=== PATIENT | female | born 2000 | race Caucasian/White ===

== ENCOUNTER 2023-10-20 08:06 | Emergency (ER) | payer OTHER ==
--- NOTE | 2023-10-20 08:11 | ED Physician Documentation ---
PD HPI ABD PAIN - Stated complaint Stated Complaint: LOW ABD PX - History obtained from History obtained from: Patient - History of Present Illness Timing - onset: Today Timing - duration: Days (1) Timing - details: Abrupt onset, Still present Quality: Cramping, Aching, Pain Location: Suprapubic, LLQ Radiation: Lower back Associated symptoms: Nausea. No: Fever, Vomiting, Dysuria, Hematuria, Vaginal dc Review of Systems Constitutional: denies: Fever, Chills : denies: Dysuria, Frequency, Discharge PD PAST MEDICAL HISTORY - Past Medical History Cardiovascular: None Respiratory: None Endocrine/Autoimmune: None COUNTER FORMER: Other ([facility] with plan for US and MRI to eval for endometriosis. ) - Present Medications Home Medications: Ambulatory Orders Medication Instructions Recorded Confirmed FLUoxetine [PROzac] 20 mg PO DAILY 10/20/23 10/20/23 HYDROcod/ACETAM 5/325 [Dorado 5/325] 1 ea PO Q6H PRN #12 tablet 10/20/23 Meloxicam [Mobic] 7.5 mg PO BID 10 Days #40 tablet 10/20/23 Ondansetron Odt [Zofran] 4 mg TL Q6H PRN #10 tablet 10/20/23 - Allergies Allergies/Adverse Reactions: Allergies Allergy/AdvReac Type Severity Reaction Status Date / Time No Known Drug Allergies Allergy Verified 10/20/23 08:17 PD ED PE NORMAL - Vitals Vital signs reviewed: Yes - General General: Alert and oriented X 3, Well developed/nourished - Abdomen Abdomen: Normal bowel sounds, Soft, Non distended, No organomegaly, Other (tender in lower abd/suprapubic area both left and right, with more to left and midline.) - Female Female : Deferred (having patient self obtain vaginal swab. ) - Rectal Rectal: Deferred - Back Back: No CVA TTP - Derm Derm: Normal color, Warm and dry Results - Vitals Vitals: Oxygen O2 Source Room air - Labs Labs: Laboratory Tests 10/20/23 10/20/23 10/20/23 09:00 09:00 10:20 WBC 9.1 RBC 3.93 L Hgb 12.1 Hct 36.5 L MCV 92.9 MCH 30.8 MCHC 33.2 RDW 11.2 L Plt Count 172 MPV 8.7 Neut # (Auto) 7.6 H Lymph # (Auto) 1.0 L [place] # (Auto) 0.4 Eos # (Auto) 0.1 Baso # (Auto) 0.0 Absolute Nucleated RBC 0.00 Nucleated RBC % 0.0 Sodium 138 Potassium 3.8 Chloride 107 Carbon Dioxide 26 Anion Gap 5.0 L BUN 19 Creatinine 0.7 Estimated GFR (MDRD) 103 Glucose 102 Calcium 8.8 Total Bilirubin 0.7 AST 19 ALT 17 Alkaline Phosphatase 48 Total Protein 6.4 Albumin 4.2 Globulin 2.2 Albumin/Globulin Ratio 1.9 Lipase 11 Urine Color YELLOW Urine Clarity CLEAR Urine pH 7.0 Ur Specific [place] 1.015 Urine Protein NEGATIVE Urine Glucose (UA) NEGATIVE Urine Ketones NEGATIVE Urine Occult Blood MODERATE H Urine Nitrite NEGATIVE Urine Bilirubin NEGATIVE Urine Urobilinogen 0.2 (NORMAL) Ur Leukocyte Esterase NEGATIVE Urine RBC 0-5 Urine WBC 0-3 Ur Squamous Epith Cells RARE Squamous Urine Bacteria Rare Ur Microscopic Review INDICATED Urine Culture Comments NOT INDICATED Urine HCG, Qual NEGATIVE C. glabrata (PCR) C. krusei (PCR) Estrellita species DNA T. vaginalis (PCR) Bact Vaginosis (PCR) 10/20/23 10:35 WBC RBC Hgb Hct MCV MCH MCHC RDW Plt Count MPV Neut # (Auto) Lymph # (Auto) [place] # (Auto) Eos # (Auto) Baso # (Auto) Absolute Nucleated RBC Nucleated RBC % Sodium Potassium Chloride Carbon Dioxide Anion Gap BUN Creatinine Estimated GFR (MDRD) Glucose Calcium Total Bilirubin AST ALT Alkaline Phosphatase Total Protein Albumin Globulin Albumin/Globulin Ratio Lipase Urine Color Urine Clarity Urine pH Ur Specific [place] Urine Protein Urine Glucose (UA) Urine Ketones Urine Occult Blood Urine Nitrite Urine Bilirubin Urine Urobilinogen Ur Leukocyte Esterase Urine RBC Urine WBC Ur Squamous Epith Cells Urine Bacteria Ur Microscopic Review Urine Culture Comments Urine HCG, Qual C. glabrata (PCR) NEGATIVE C. krusei (PCR) NEGATIVE Estrellita species DNA NEGATIVE T. vaginalis (PCR) NEGATIVE Bact Vaginosis (PCR) NEGATIVE - Rads (name of study) pelvi US Relevant Findings:: Prelim report reviewed (no acute process. ) PD Medical Decision Making - ED course Complexity details: reviewed results (pelvis US without acute abnormality. Prominent left veins c/w pelvic congestion.), re-evaluated patient (improved degree of pain wtih IV meds and repeat doses. ), considered differential (painful menses for several months, today much worse than prior. ), d/w patient Departure - Departure Disposition: 01 Home, Self Care Clinical Impression: Dysmenorrhea, Lower abdominal pain Condition: Stable Record reviewed to determine appropriate education?: Yes Instructions: ED Cramping Menstrual Follow-Up: [facility] [Provider Group] Prescriptions: Meloxicam [Mobic] 7.5 mg PO BID 10 Days #40 tablet HYDROcod/ACETAM 5/325 [Dorado 5/325] 1 ea PO Q6H PRN #12 tablet PRN Reason: Pain Ondansetron Odt [Zofran] 4 mg TL Q6H PRN #10 tablet PRN Reason: Nausea / Vomiting Comments: You were pelvic ultrasound did not show any acute abnormalities. No signs of cysts, tumors, uterus abnormalities, internal bleeding such as ruptured cyst. The blood flow is good to both ovaries as well. No obvious endometrial or other areas noted to be abnormal. The ultrasound is fairly more tailored and targeted to the reproductive organs. Follow-up with your women's health in the pelvic and abdominal MRI to look for other potential endometrial implants and other places. Commonly there can be some free fluid associated with those and your ultrasound does not show any but still not conclusive in that regard. Use some regular anti-inflammatories for the next 5 or 6 days. I prescribed 1 called meloxicam which is a longer lasting and slightly easier on the stomach. Still take it with food. For your next period, I will if you are able to predict the timing of it, start the anti-inflammatory 2 or 3 days before and continue through the period. Otherwise start at the first onset of the menses. Add Tylenol/acetaminophen 500 to 650 mg 4 times daily if needed for pains. Stay well-hydrated. Add hydrocodone/acetaminophen if needed for worse pains. Ondansetron if needed for nausea related to the pain or the medicines. Follow-up with your women's health clinic. I sent your prescription to preferred pharmacy. I am prescribing a short course of narcotic pain medication for you. These are potentially dangerous and addictive medications that should be used carefully. These medications may constipate you. Take an [id number] stool softener such as docusate twice daily with plenty of water while taking these medications. If you go 24 hours without a bowel movement, take [id number] MiraLAX, per package instructions. Do not drink or drive while taking these medications. If you received narcotic or sedating medications while in the emergency department do not drive for 24 hours. Store this medication in a safe, secure place and out of reach of children. It is a violation of federal law to give or sell this medication to another person or to use in a manner other than prescribed. The ED will not refill narcotic prescriptions, including prescriptions lost or stolen. You can dispose of unwanted medications at the [facility] office or at several pharmacies such as [facility]. Forms: PCP List Discharge Date/Time: 10/20/23 12:29
[2023-10-20 09:04] LABS: BASOPHILS % (AUTO) 0.2 %; EOSINOPHILS # (AUTO) 0.1 10^3/uL (0.0-0.7); EOSINOPHILS % (AUTO) 0.6 %; HCT - HEMATOCRIT 36.5 % (37.0-47.0); HGB - HEMOGLOBIN 12.1 g/dL (12.0-16.0); LYMPHOCYTES % (AUTO) 10.5 %; MEAN CORPUSCULAR HEMOGLOBIN 30.8 pg (27.0-31.0); MEAN CORPUSCULAR HGB CONC 33.2 g/dL (32.0-36.0); MEAN CORPUSCULAR VOLUME 92.9 fL (81.0-99.0); MEAN PLATELET VOLUME 8.7 fL (7.9-10.8); MONOCYTES # (AUTO) 0.4 10^3/uL (0.0-1.0); MONOCYTES % (AUTO) 4.9 %; NEUTROPHILS # (AUTO) 7.6 10^3/uL (1.5-6.6); NEUTROPHILS % (AUTO) 83.6 %; PLT - PLATELET COUNT 172 10^3/uL (130-450); RED BLOOD COUNT 3.93 10^6/uL (4.20-5.40); RED CELL DISTRIBUTION WIDTH 11.2 % (12.0-15.0); WHITE BLOOD COUNT 9.1 x10^3/uL (4.8-10.8)
[2023-10-20 09:26] LABS: ALBUMIN 4.2 g/dL (3.2-5.5); ALBUMIN/GLOBULIN RATIO 1.9 (1.0-2.2); BILIRUBIN,TOTAL 0.7 mg/dL (0.2-1.0); CALCIUM 8.8 mg/dL (8.5-10.3); CREATININE 0.7 mg/dL (0.6-1.3); POTASSIUM 3.8 mmol/L (3.5-4.5); TOTAL PROTEIN 6.4 g/dL (6.4-8.9)
[2023-10-20] MEDS: SODIUM CHLORIDE 0.9% 1,000 ML IV STA (09:27)
[2023-10-20] MEDS: KETOROLAC 15 MG/ML VIAL IVP STA (09:27)
--- NOTE | 2023-10-20 09:59 | Ultrasound Report ---
PROCEDURE: Pelvic w/Transvag+Doppler Comp INDICATIONS: pelvic pain today, menstrual TECHNIQUE: Real-time scanning was performed of the pelvic organs, with image documentation. Additional endovagi nal scanning was necessary due to incomplete visualization of the adnexal and endometrial structures by transabdominal scanning. Doppler interrogation was performed of the ovaries bilaterally. COMPARISON: None. FINDINGS: Uterus: 7 x 4.2 x 5.2 cm. Endometrium measures 8 mm. Anteverted positioning. Ovaries: Nonenlarged ovaries measuring 3 cc bilaterally. Spectral flows are seen. Prominent left pelv ic veins. Other: Physiologic free fluid is seen. IMPRESSION: No acute sonographic abnormality in the pelvis. Prominent left pelvic veins, sometimes seen in the setting of pelvic congestion. Reviewed by: Lokesh Garcia MD on 10/20/2023 9:58 AM PDT Approved by: Lokesh Garcia MD on 10/20/2023 9:58 AM PDT Station ID: [id number]
[2023-10-20 10:35] LABS: BILIRUBIN,URINE NEGATIVE (NEGATIVE); CLARITY,URINE CLEAR (CLEAR); GLUCOSE, URINE (UA) NEGATIVE (NEGATIVE); KETONES,URINE (UA) NEGATIVE (NEGATIVE); LEUKOCYTE ESTERASE, URINE NEGATIVE (NEGATIVE); NITRITE,URINE NEGATIVE (NEGATIVE); OCCULT BLOOD,URINE MODERATE (NEGATIVE); PROTEIN,URINE NEGATIVE (NEGATIVE); UROBILINOGEN,URINE 0.2 (NORMAL) E.U./dL (NORMAL)
[2023-10-20 10:36] LABS: HCG UR QUAL NEGATIVE
[2023-10-20 10:39] LABS: BACTERIA,URINE Rare /HPF (None Seen); RBC,URINE 0-5 /HPF (0-5); SQUAMOUS EPITHELIAL CELL,UR RARE Squamous (<= Few); WBC,URINE 0-3 /HPF (0-5)
[2023-10-20] MEDS: FLUoxetine 10 MG CAPSULE PO STA (12:04)
[2023-10-20 12:34] VITALS: BP 118/80; O2SAT 100
[2023-10-20 18:36] LABS: BACTERIAL VAGINOSIS DNA NEGATIVE (NEGATIVE); CANDIDA GROUP DNA NEGATIVE (NEGATIVE); CANDIDA KRUSEI DNA NEGATIVE (NEGATIVE); TRICHOMONAS VAGINALIS DNA NEGATIVE (NEGATIVE)
[2023-10-20 18:37] LABS: CANDIDA GLABRATA DNA NEGATIVE (NEGATIVE)
== END 2023-10-20 12:29 | disposition home or self-care (01) ==
LOC: ED 08:06
DX: R10.32 Left lower quadrant pain (principal); N94.6 Dysmenorrhea, unspecified
CPT/HCPCS: 36415; 76830; 76856; 80053; 81001; 81025; 81514; 83690; 85025; 93975; 96374; 99283; 99284; A9270; 81003; 87086

== ENCOUNTER 2023-11-05 12:51 | Outpatient (CLI) | payer OTHER ==
[~2023-11-05 12:51] MED LIST: GADOTERATE MEGLUMINE 7.5 MMOL/15 ML VIAL ONE
[2023-11-05] MEDS: GADOTERATE MEGLUMINE 10 MMOL/20 ML VIAL IVP ONE (15:31)
--- NOTE | 2023-11-07 10:03 | MRI Report ---
PROCEDURE: Pelvis W/WO INDICATIONS: ENDOMETRIOSIS CONTRAST: 12.6 mm clear scan TECHNIQUE: Coronal ultra fast SE, sagittal breath-hold T2 FSE; axial T1 FSE with and without fat saturation thro ugh the pelvis. Optional long- and short-axis uterine nonbreath-hold T2 FSE through the uterus. Sag ittal or axial dynamic ultra fast GE during administration of contrast. Post-contrast axial or coron al ultra fast GE / 2-D spoiled GE with fat saturation from the iliac crests to the symphysis. Option al diffusion weighted imaging and ADC may be performed. COMPARISON: Ultrasound 10/20/2023 FINDINGS: Image quality: Excellent. Uterus: Uterus is normal in size. Endometrium is normal in thickness. Junctional zone is normal in thickness at 12 mm or less. Uterus is anteflexed and retroverted. Adnexa: Both ovaries are normal in size, without suspicious cystic or solid lesions. No T1 hyperint ense lesions throughout the pelvis. Prominent left gonadal and arcuate vasculature. Urinary system: Bladder wall is normal in thickness. Distal ureters are non distended. Urethra taylor ears normal in morphology. Nodes and vessels: No pelvic or inguinal adenopathy by size criteria. Iliac vessels are normal in s ize. Bowel and peritoneum: No pathologic free pelvic fluid. Inferior colon and small bowel loops are nor mal in caliber. Soft tissues: No inguinal hernias. No findings of pelvic floor incompetence in the absence of provo cation. Bones: Marrow demonstrates normal overall signal. IMPRESSION: No endometrial deposits identified. Dilated left gonadal and adnexal vasculature, which can be seen in the clinical setting of pelvic con gestion syndrome. Reviewed by: Kale Arevalo MD on 11/07/2023 9:01 AM SILVESTRE Approved by: Kale Arevalo MD on 11/07/2023 9:01 AM SILVESTRE Station ID: [id number]
== END 2023-11-05 12:52 | disposition home or self-care (01) ==
LOC: DI 12:51
PROVIDERS: ATTEND Nurse Practitioner
DX: N80.9 Endometriosis, unspecified (principal); R93.89 Abnormal findings on diagnostic imaging of other specified body structures
CPT/HCPCS: 72197; A9575